=== PATIENT | female | born 1975 | race Caucasian/White ===

== ENCOUNTER 2023-12-22 14:45 | Outpatient (CLI) | payer BC, SELFPAY ==
--- NOTE | ~2023-12-22 | MR_ITS ---
MRI of the cervical spine Clinical History: Cervicalgia Technique: Axial T2-weighted and gradient images, and sagittal T1-weighted, T2-weighted, and STIR mikala ges were acquired. Findings: No acute fracture seen. There is probable minimal grade 1 anterolisthesis of C4 over C5. Th ere disc prostheses at the C3-C4 and C4-C5 disc spaces. No suspicious bone marrow signal abnormality seen. At C2-C3, there is no disc bulge or herniation. There is mild facet arthropathy. There is minimal can al stenosis without ashley cord compression. Bilateral neural foramina are preserved. At C3-C4, there is mild canal stenosis without ashley cord compression. There is left neural foraminal narrowing. Right neural foramen preserved. At C4-C5, there is mild canal stenosis without ashley cord compression. There is probable mild bilater al neural foraminal narrowing with bilateral facet arthropathy. At C5-C6, there is no ashley spinal canal stenosis or cord compression. No definite disc bulge or shanae iation. There is probable preservation of bilateral neural foramina despite mild facet arthropathy. At C6-C7, there is no disc bulge or herniation. There is bilateral facet arthropathy. No definite can al stenosis, cord compression, or neural foraminal narrowing. No abnormal signal evident in the spinal cord. Paravertebral soft tissues are unremarkable. Impression: Mild degenerative spondylosis overall, with mild canal stenosis at C3-C4 and C4-C5. Disc prostheses at the C3-C4 and C4-C5 disc spaces. Minimal grade 1 anterolisthesis of C4 over C5. Reviewed, dictated and finalized at [facility]. Impression: Mild degenerative spondylosis overall, with mild canal stenosis at C3-C4 and C4 -C5. Disc prostheses at the C3-C4 and C4-C5 disc spaces. Minimal grade 1 anterolisthesis of C4 over C5.
== END 2023-12-22 14:46 ==
LOC: MICIMG 14:47
PROVIDERS: PCP Nurse Practitioner Family; Visit Provider Nurse Practitioner Family
DX: M47.892 Other spondylosis, cervical region (principal); M50.221 Other cervical disc displacement at C4-C5 level
CPT/HCPCS: 72141